=== PATIENT | female | born 2000 | race Caucasian/White ===

== ENCOUNTER 2024-02-18 04:37 | Emergency (ER) | payer OTHER, SELFPAY ==
[2024-02-18 04:42] VITALS: BP 117/81
[2024-02-18 05:14] VITALS: BMI 21.7
--- NOTE | 2024-02-18 05:21 | ED.GENMED ---
History of Present Illness
<Jose Raul Augustin DO - Last Filed: 02/18/24 05:23>
General
Chief Complaint: Abdominal Pain
Source: patient and family
Exam Limitations: none
Time Seen by Provider: 02/18/24 05:01
History of Present Illness
History of Present Illness:
24-year-old female with history of IBS who presents with epigastric abdominal pain that began tonight about 2 hours ago. Patient states that it was really severe. Pain is about the same as when it started. No nausea or vomiting. No diarrhea.
Had normal bowel movement yesterday. No fevers. No melena. No hematochezia. No urinary symptoms. Last menstrual period was January 31. The patient was eating popcorn prior to going to bed
Past History
<Jose Raul Augustin DO - Last Filed: 02/18/24 05:23>
Past History
ED Past Medical History: Other (Irritable bowel syndrome, anxiety, ADHD)
Phy Exam
<Jose Raul Augustin DO - Last Filed: 02/18/24 05:23>
Physical Exam
Physical Exam:
CONSTITUTIONAL Patient alert and oriented to person, place and time. Well-appearing. Vital signs reviewed.
HEAD atraumatic, normocephalic.
EYES eyelids normal to inspection, Pupils equally round and reactive to light, Extraocular muscles intact, Conjunctiva normal, Sclera normal.
NECK normal range of motion, Trachea midline, no jugular venous distention.
RESPIRATORY CHEST No respiratory distress noted, Chest expansion equal, Bilateral breath sounds clear.
CARDIOVASCULAR regular rate and rhythm, Heart sounds normal.
ABDOMEN moderate right upper quadrant tenderness, Bowel sounds normal. No distention.
BACK normal inspection, no obvious deformities
UPPER EXTREMITY range of motion normal, Motor strength normal, no cyanosis, no edema.
LOWER EXTREMITY range of motion normal, Motor strength normal, no cyanosis, no edema.
NEURO Speech normal, No focal motor deficits, [place] coma scale 15, Memory normal, Cranial Nerves intact to screening exam.
SKIN skin warm, dry, and normal in color.
PSYCHIATRIC patient oriented to person place and time, Normal affect.
Course
<Jose Raul Augustin, DO - Last Filed: 02/18/24 05:23>
Orders/Labs/Results
Orders:
Orders
02/18/24 05:01
Test Result ONCE
02/18/24 05:10
0.9% Sodium Chloride 1000 ml [Nss] 1,000 ml IV BOLUS
Ketorolac [Toradol] 15 mg IV NOW STA
US Abdomen Complete/Upper Urgent
Comment:
Reason For Exam: upper abd pain
02/18/24 05:24
Complete Blood Count/With Diff Urgent
Comprehensive Metabolic Panel Urgent
HCG, Serum Qualitative Screen Urgent
Lipase Urgent
02/18/24 08:00
Urinalysis Reflex To Culture Urgent
Date Specimen was Collected: 02/18/24
Time Specimen was Collected: 06:38
Potassium Chloride [KCl] 40 meq 0.9% Sodium Chloride 250 ml [Nss] 250 ml IV NOW
02/18/24 08:19
Potassium Chloride [KCl] 40 meq PO NOW STA
Abnormal Lab Results
02/18/24
05:24
WBC 13.3 H 10^3/uL
(4.8-10.8)
Absolute Neuts (auto) 10.7 H 10^3/uL
(1.4-6.5)
Absolute Monos (auto) 0.8 H 10^3/uL
(0.1-0.6)
Neutrophils % 80.3 H %
(42.2-75.2)
Lymphocytes % 12.1 L %
(20.5-51.1)
Potassium 3.1 L mmol/L
(3.5-5.1)
Glucose 136 H mg/dl
(70-99)
AST 211 H U/L
(14-36)
ALT 55 H U/L
(0-35)
02/18/24 05:24
02/18/24 05:24
Vital Signs
Initial and Last Documented VS:
Initial Vital Signs
Temp Pulse Resp BP Pulse Ox
97.9 F 75 20 117/81 100
02/18/24 04:42 02/18/24 04:42 02/18/24 04:42 02/18/24 04:42 02/18/24 04:42
Last Documented Vital Signs
Temp Pulse Resp BP Pulse Ox
97.5 F 103 15 113/85 99
02/18/24 08:40 02/18/24 08:40 02/18/24 08:40 02/18/24 08:40 02/18/24 08:40
<Ray Cary MD - Last Filed: 02/18/24 08:45>
Orders/Labs/Results
Orders:
Orders
02/18/24 05:01
Test Result ONCE
02/18/24 05:10
0.9% Sodium Chloride 1000 ml [Nss] 1,000 ml IV BOLUS
Ketorolac [Toradol] 15 mg IV NOW STA
US Abdomen Complete/Upper Urgent
Comment:
Reason For Exam: upper abd pain
02/18/24 05:24
Complete Blood Count/With Diff Urgent
Comprehensive Metabolic Panel Urgent
HCG, Serum Qualitative Screen Urgent
Lipase Urgent
02/18/24 08:00
Urinalysis Reflex To Culture Urgent
Date Specimen was Collected: 02/18/24
Time Specimen was Collected: 06:38
Potassium Chloride [KCl] 40 meq 0.9% Sodium Chloride 250 ml [Nss] 250 ml IV NOW
02/18/24 08:19
Potassium Chloride [KCl] 40 meq PO NOW STA
Abnormal Lab Results
02/18/24
05:24
WBC 13.3 H 10^3/uL
(4.8-10.8)
Absolute Neuts (auto) 10.7 H 10^3/uL
(1.4-6.5)
Absolute Monos (auto) 0.8 H 10^3/uL
(0.1-0.6)
Neutrophils % 80.3 H %
(42.2-75.2)
Lymphocytes % 12.1 L %
(20.5-51.1)
Potassium 3.1 L mmol/L
(3.5-5.1)
Glucose 136 H mg/dl
(70-99)
AST 211 H U/L
(14-36)
ALT 55 H U/L
(0-35)
02/18/24 05:24
02/18/24 05:24
Vital Signs
Initial and Last Documented VS:
Initial Vital Signs
Temp Pulse Resp BP Pulse Ox
97.9 F 75 20 117/81 100
02/18/24 04:42 02/18/24 04:42 02/18/24 04:42 02/18/24 04:42 02/18/24 04:42
Last Documented Vital Signs
Temp Pulse Resp BP Pulse Ox
97.5 F 103 15 113/85 99
02/18/24 08:40 02/18/24 08:40 02/18/24 08:40 02/18/24 08:40 02/18/24 08:40
<Jose Raul Augustin DO - Last Filed: 02/18/24 05:23>
MDM/Problems Addressed
MDM/Problems Addressed:
Epigastric abdominal pain
<DO Kodak Villalobos Last Filed: 02/18/24 05:23>
*Pulse Oximetry
Patient hypoxic: no
*Critical Care Note
Total Time (30-74mins, 75-104mins- exclusive of procedures): Not Applicable
Data Reviewed
Source: patient and family
Further Testing Considered But Not Given:
Consider CT but no clinical concern for bowel obstruction. Check ultrasound the gallbladder
<Ray Cary MD - Last Filed: 02/18/24 08:45>
Update Note
Update Note:
Pt reports sig. improvement in symptoms after treatment. Repeat abdominal exam: soft and nontender.
Mild leukocytosis/abnormal LFTs and abdominal US report discussed with personal finance instructor GI physician () -as long as pain is controlled without vomiting, recommends discussion with patient regarding potential discharge home, with following
recommendation: Repeat blood work next week with possible return to ED with recurrent abdominal pain/fever/vomiting.
Patient agrees with treatment plan and feels comfortable going home at this time. As such, patient will be discharged home, in stable condition, to the care of her mother, with recommendation to speak with her PCP but repeat blood work next week.
Patient will return to ED with worsening symptoms. Recommended continued fluids, PPI, and bland diet over the weekend.
ED Attending Note
<Jose Raul Augustin DO - Last Filed: 02/18/24 05:23>
-
Portions of this chart may have been created with voice recognition software.� Occasional wrong word or��sound alike� substitutions may have occurred due to the inherent limitations of voice recognition software.
Discharge Plan
Departure
Patient Disposition: Home (Routine Discharge)
Date of Disposition: 02/18/24
Time of Disposition: 08:42
Patient with high blood pressure during this ER visit?: No
Condition: Good
Discharge Problem:
Abdominal pain, Abnormal LFTs, Hypokalemia
Instructions: Hypokalemia, [place] Diet, Low-fat diet, Abdominal Pain
Prescriptions:
No Action
No Current Medications
0
Referrals:
Ruthie Philip DO [Active] -
Valdo Moctezuma, DO [Family Provider] -
Activity Restrictions/Additional Instructions:
As discussed, please follow-up with your primary care physician for reevaluation, including repeat blood work next week. Please consider return to ED with worsening symptoms, i.e. fever/worsening pain/vomiting.
Interventions
Interventions:
*Risk Screen - Suicide Last Done: 02/18/24 04:42
*General Assessment Last Done: 02/18/24 04:42
*Neglect/Abuse Screening Last Done: 02/18/24 04:42
ED- Fall Risk Assessment Last Done: 02/18/24 04:42
*ED COVID-19 Vaccine History Last Done: 02/18/24 04:42
CT-Gqnoaq-Updlmxtprg Assessment Last Done: 02/18/24 05:14
Discharge Date and Time
Print Language: CHINESE
[2024-02-18] MEDS: TORADOL 15 MG IV (05:24)
[2024-02-18] MEDS: NSS 1000 IV (05:25)
[2024-02-18 05:40] LABS: % Basophils 0.5 % (0-2); % Eosinophils 0.7 % (0-6); % Immature Granulocytes 0.2 % (0-0.5); % Lymphocytes 12.1 % (20.5-51.1); % Monocytes 6.2 % (1.7-9.3); % Neutrophils 80.3 % (42.2-75.2); Absolute Basophils 0.1 10^3/uL (0-0.2); Absolute Eosinophils 0.1 10^3/uL (0-0.7); Absolute Lymphocytes 1.6 10^3/uL (1.2-3.4); Absolute Monocytes 0.8 10^3/uL (0.1-0.6); Absolute Neutrophils 10.7 10^3/uL (1.4-6.5); Hemoglobin 12.9 g/dL (12.0-16.0); Mean Corp Hgb Conc. 33.1 g/dL (33.0-37.0); Mean Corpuscular Hgb 27.7 pg (27.0-31.0); Mean Corpuscular Volume 83.9 fL (81.0-99.0); Mean Platelet Volume 9.7 fL (7.4-10.4); Nucleated Red Blood Cells % 0 %; Platelet Count 253 10^3/uL (130-400); Red Blood Cell Count 4.65 10^6/uL (4.20-5.40); Red Cell Dist. Width 12.8 % (11.5-14.5); White Blood Cell Count 13.3 10^3/uL (4.8-10.8)
[2024-02-18 05:47] LABS: HCG, Serum Qualitative Screen Negative
[2024-02-18 05:50] LABS: ALT (SGPT) 55 U/L (0-35); AST (SGOT) 211 U/L (14-36); Albumin 4.7 g/dl (3.5-5.0); Alkaline Phosphatase 84 U/L (38-126); Blood Urea Nitrogen 11 mg/dl (7-17); Calcium 9.5 mg/dl (8.4-10.2); Carbon Dioxide 28 mmol/L (22-30); Chloride 104 mmol/L (98-107); Estimated Creatinine Clearance 121 ml/min; Glucose 136 mg/dl (70-99); Lipase 75 U/L (23-300); Potassium 3.1 mmol/L (3.5-5.1); Sodium 138 mmol/L (135-145); Total Bilirubin 0.6 mg/dl (0.2-1.3); Total Protein 7.3 g/dl (6.3-8.2); eGFR > 60.00
[2024-02-18 06:38] VITALS: BP 130/84
[2024-02-18 06:47] VITALS: BP 130/84
[2024-02-18 07:00] VITALS: BP 119/87
[2024-02-18 08:13] LABS: Urine Albumin Negative (Neg - Trace); Urine Bilirubin Negative (Negative); Urine Character Clear (Clear); Urine Color Yellow; Urine Glucose Negative (Negative); Urine Ketone Negative (Negative); Urine Leukocyte Negative (Negative); Urine Nitrite Negative (Negative); Urine Occult Blood Negative (Negative); Urine Urobilinogen Negative (Neg - 1+); Urine pH 6.5 (5.0-9.0)
[2024-02-18 08:17] VITALS: BP 113/85
[2024-02-18] MEDS: KCL 40 MEQ PO (08:27)
[2024-02-18 08:40] VITALS: BP 113/85
== END 2024-02-18 09:12 | disposition home or self-care (01) ==
LOC: EMR 04:37
PROVIDERS: EMERGENCY PHYSICIAN Emergency Medicine; FAMILY PHYSICIAN Internal Medicine
DX: R10.13 Epigastric pain (principal); E87.6 Hypokalemia; R94.5 Abnormal results of liver function studies; K58.9 Irritable bowel syndrome, unspecified; F90.9 Attention-deficit hyperactivity disorder, unspecified type; F41.9 Anxiety disorder, unspecified; Z88.0 Allergy status to penicillin
CPT/HCPCS: 99284; 96374; 96361; 76700; 80053; 81003; 83690; 84703; 85025

== ENCOUNTER → 2024-03-02 08:19 | Outpatient (REF) | payer OTHER, SELFPAY | LOC: HWRAD 08:19 | PROVIDERS: ATTENDING PHYSICIAN Nurse Practitioner Family; FAMILY PHYSICIAN Internal Medicine | DX: Z09 Encounter for follow-up examination after completed treatment for conditions other than malignant neoplasm (principal); R93.2 Abnormal findings on diagnostic imaging of liver and biliary tract; R79.89 Other specified abnormal findings of blood chemistry; K21.9 Gastro-esophageal reflux disease without esophagitis | CPT/HCPCS: 74177; Q9967 ==

== ENCOUNTER 2024-03-05 06:31 | Day surgery (SDC) | payer OTHER, SELFPAY ==
[2024-03-05] VITALS (9 sets, daily range): BP systolic 119–134; BP diastolic 72–89; BMI 20.9
[2024-03-05] MEDS: TYLENOL 1000 MG PO (12:35)
[2024-03-05] MEDS: NORMOSOL-R 1000 IV (12:35)
[2024-03-05] MEDS: IC GREEN 2.5 MG IV (12:35)
--- NOTE | 2024-03-05 14:14 | OR.RPT ---
Operative Report
Operative Report
Primary Surgeon: Elio
Assisting: Ramon ROSAS
Pre-op Diagnosis: Biliary colic
Post-op Diagnosis: Chronic cholecystitis
Procedure Performed: Robot assisted laparoscopic cholecystectomy
Anesthesia Type: GETA
Specimen / Cultures: Gallbladder
Estimated Blood Loss: 2cc
Complications: None immediate
Operative Findings: Softly distended gallbladder with thin omental adhesions and fibrotic posterior plane
Date of Surgery:� 03/05/24
Indications: This 24F developed right upper quadrant pain. Work-up showed no stones, mildly elevated liver enzymes and no ductal dilation. The suspicion was either that she passed a stone or that her stones are too small to be visualized on
ultrasound. Alternatively, this could be biliary dyskinesia. In either case, cholecystectomy is indicated. Laparoscopic cholecystectomy with robotic assist was elected.
Description of procedure: The patient was placed on the operating table in the supine position. General anesthesia was induced. A time-out was completed verifying correct patient, procedure, site, positioning, and special equipment prior to
beginning this procedure. An orogastric tube was placed. The abdomen was prepped and draped in the usual sterile fashion. A stab incision was made in left upper quadrant and the Veress needle was inserted. Proper position was confirmed by aspiration
and saline meniscus test. The abdomen was insufflated with carbon dioxide to a pressure of 12mmHg. The patient tolerated insufflation well.
A 8mm trocar was then inserted above the umbilicus. The laparoscope was inserted and the abdomen inspected. No injuries from initial trocar placement or Veress needle insertion were noted. Additional 8mm trocars were then inserted in the following
locations: two in the right lower quadrant and to the left of the umbilicus and just above. The abdomen was inspected and no abnormalities were found. The table was placed in the reverse Trendelenburg position with the right side up. The dome of the
gallbladder was grasped with an atraumatic grasper and retracted over the dome of the liver. The infundibulum was then grasped with an atraumatic grasper and retracted toward the right lower quadrant. This maneuver exposed Calot�s triangle. The
peritoneum overlying the gallbladder infundibulum was then incised and the cystic duct and cystic artery identified and circumferentially dissected so that a clear view of the liver was achieved through a window between the cystic duct an cystic
artery. At this time, the only two structures going into the gallbladder were the cystic artery and cystic duct. The CBD was identified with ICG and protected.
The cystic duct was then doubly clipped and divided. The cystic artery was controlled with bipolar and divided. The gallbladder was then dissected from its peritoneal attachments by electrocautery. The gallbladder was removed using an endoscopic
retrieval bag placed through the umbilical port. The gallbladder was passed off the table as a specimen. The gallbladder fossa was closely inspected. There was no evidence of bleeding from the gallbladder fossa or cystic artery or leakage of the
bile from the cystic duct stump. The umbilical trocar site was closed at the fascial level with 2-0 PDS. Secondary trocars were removed under direct vision and noted to be hemostatic. The abdomen was allowed to collapse. The skin was closed with
subcuticular sutures of 4-0 monocryl and topical skin adhesive. The orogastric tube was removed.
The patient tolerated the procedure well and was taken to the postanesthesia care unit in stable condition.
[2024-03-05] MEDS: DILAUDID 0.25 MG IV (15:11)
[2024-03-05] MEDS: ROXICODONE 5 MG PO (16:09)
== END 2024-03-05 16:55 | disposition home or self-care (01) ==
LOC: SDS 06:31
PROVIDERS: ATTENDING PHYSICIAN Surgery
DX: K82.4 Cholesterolosis of gallbladder (principal)
CPT/HCPCS: 47562; 88304